=== PATIENT | female | born 1995 | race Two or more races ===

== ENCOUNTER 2019-05-26 12:17 | Emergency (ER) | payer MEDICAID ==
[~2019-05-26] VITALS: Ht 162.6 cm; Wt 68.0 kg
[2019-05-26 12:21] VITALS: BP 107/69
[2019-05-26] MEDS ORDERED: ACETAMINOPHEN 325 MG TABLET ONE (12:38)
[2019-05-26] MEDS ORDERED: ACETAMINOPHEN 325 MG TABLET PO ONE (13:00)
== END 2019-05-26 13:23 | disposition home or self-care (01) ==
LOC: ER 12:17
DX: O99.511 Diseases of the respiratory system complicating pregnancy, first trimester (principal); J06.9 Acute upper respiratory infection, unspecified; Z3A.13 13 weeks gestation of pregnancy
CPT/HCPCS: 71045-TC